=== PATIENT | female | born 2000 | race African-American/Black ===

== ENCOUNTER 2022-12-03 19:29 | Emergency (ER) | payer SELFPAY ==
[~2022-12-03] VITALS: Ht 175.3 cm; Wt 91.0 kg
[2022-12-03 20:02] VITALS: BP 127/93
== END 2022-12-04 02:15 | disposition left against medical advice (07) ==
LOC: ER 19:29
DX: Z53.21 Procedure and treatment not carried out due to patient leaving prior to being seen by health care provider (principal)

== ENCOUNTER 2022-12-31 21:41 | Emergency (ER) | payer SELFPAY ==
[~2022-12-31] VITALS: Ht 175.3 cm; Wt 91.0 kg
[2022-12-31 22:03] VITALS: BP 153/97
== END 2023-01-01 03:47 | disposition left against medical advice (07) ==
LOC: ER 21:41
DX: Z53.21 Procedure and treatment not carried out due to patient leaving prior to being seen by health care provider (principal)

== ENCOUNTER 2023-02-27 02:16 | Emergency (ER) | payer SELFPAY | END 2023-02-27 02:35 | disposition left against medical advice (07) | LOC: ER 02:16 | DX: Z53.21 Procedure and treatment not carried out due to patient leaving prior to being seen by health care provider (principal) | CPT/HCPCS: 99281 ==